=== PATIENT | female | born 1970 | race Caucasian/White ===

== ENCOUNTER 2025-03-05 21:11 | Emergency (ER) | payer BC ==
[~2025-03-05] VITALS: Ht 170.2 cm; Wt 82.4 kg
[2025-03-05 21:32] LABS: UA COLLECTION TYPE CLN CATCH MIDSTREAM
[2025-03-05 21:33] LABS: LEUKOCYTE ESTERASE ,URINE SMALL (Neg); NITRITES, URINE NEGATIVE (Neg); OCCULT BLOOD,URINE TRACE-INTACT (Neg)
[2025-03-05 21:37] LABS: MEAN PLATELET VOLUME 7.5 FL (7.4-10.4); RED CELL DISTRIBUTION WIDTH 13.3 % (11.5-14.5)
[2025-03-05 21:37] LABS: URINE HCG NEGATIVE (NEG)
[2025-03-05 21:38] LABS: MUCUS STRANDS MODERATE /LPF (Neg)
[2025-03-05 21:39] LABS: SQUAMOUS EPITHELIAL CELL,UR MODERATE /LPF (FEW)
[2025-03-05 21:55] LABS: CREATININE 0.94 MG/DL (0.40-0.90); TOTAL CARBON DIOXIDE 24.0 MMOL/L (24-32); eCRCL 68 ML/MIN; eGFR 63 ML/MIN
[2025-03-06 01:00] VITALS: BP 161/95; PULSE 80; RESP 18; TEMP 98.5; O2SAT 98
--- NOTE | 2025-03-06 01:23 | Physician Documentation ---
History of Present Illness ~ Chief Complaint: Abdominal Pain Stated Complaint: GALLBLADDER COMPLICATIONS Time Seen by MD: 01:18 HPI Patient presents to the emergency room for evaluation of right-sided abdominal pain. She has a HIDA scan ordered for the morning. She has had nothing for her pain. She reports that she has had CT scans and ultrasounds and labs however no cause for her pain could be found and that is why the HIDA scan as scheduled. She reports that she talked to the office of her doctor who told her to come into the emergency room to be evaluated. Medication Reconciliation Allergies: Coded Allergies: codeine (Unverified Adverse Reaction, Unknown, hallucinations, 03/05/25) hydromorphone (Unverified Adverse Reaction, Unknown, vomiting, 03/05/25) morphine (Unverified Adverse Reaction, Unknown, vomiting, 03/05/25) Review of Systems ROS All review of systems negative except as per HPI Physical Exam Vital Signs: Temperature: 98.5, Source: Oral, Heart Rate: 80, Respiratory Rate: 18, BP: 161/95, Pulse Oximetry: 98, Weight: 82.400 Oxygen Flow Rate: 0 Physical Exam General: Patient is awake, alert, oriented x4 in no acute distress and well appearing.~ Head: Normocephalic and atraumatic. Eyes: Conjunctival normal. EOMI. PERRL. ENT: Mucous membranes moist. Neck: Supple, trachea is midline. Chest: Clear to auscultation bilaterally without rales, rhonchi, or wheezes. There is no accessory muscle use or retractions. Cardiac: RRR without murmurs, gallops, or rubs. Abd: Soft, nondistended, mild tenderness to right upper quadrant without peritonitis Progress Results/Orders Results/Orders Orders - BLAZE MACARIO MD Cult Urine + [address] (03/05/25 21:39) Completed Orders - BLAZE MACARIO MD Hcg, Ur Ql (03/05/25 21:18) Cbc/Diff (03/05/25 21:18) BMP (03/05/25 21:18) Lipase (03/05/25 21:18) CMP (03/05/25 21:18) Ua W/Microscopic, Cult If Ind (03/05/25 21:19) Vital Signs 03/05/25 03/06/25 21:15 01:00 Temp 98.5 98.5 Pulse 84 80 Resp 16 18 B/P (MAP) 156/100 161/95 (117) Pulse Ox 98 98 O2 Flow Rate 0 0 Laboratory Tests Test 03/05/25 21:19 03/05/25 21:31 Urine Specimen Description Cln catch midstream Urine Color Yellow Urine Clarity Clear Urine pH 6.0 Urine Specific [place] 1.025 Urine Protein Negative Urine Glucose (UA) Negative Urine Ketones Negative Urine Occult Blood Trace-intact Urine Nitrite Negative Urine Bilirubin Negative Urine Urobilinogen 0.2 Urine Leukocyte Esterase Small H Urine RBC 0-2 Urine WBC 5-10 H Urine Squamous Epithelial Cells Moderate Urine Bacteria 1+ Urine Mucus Moderate Urine Culture Indicated Indicated Volume Urine Centrifuged 6 ml Urine HCG, Qualitative Negative Urine Comment Low volume White Blood Count 6.4 Red Blood Count 4.99 Hemoglobin 14.8 Hematocrit 43.5 Mean Corpuscular Volume 87.2 Mean Corpuscular Hemoglobin 29.7 Mean Corpuscular Hemoglobin Concent 34.0 Red Cell Distribution Width 13.3 Platelet Count 278 Mean Platelet Volume 7.5 Neutrophils (%) (Auto) 56.1 Lymphocytes (%) (Auto) 30.2 Monocytes (%) (Auto) 10.7 Eosinophils (%) (Auto) 2.2 Basophils (%) (Auto) 0.8 Neutrophils # (Auto) 3.6 Lymphocytes # (Auto) 1.9 Monocytes # (Auto) 0.7 Eosinophils # (Auto) 0.1 Basophils # (Auto) 0.1 CBC Comment Sodium Level 137 Potassium Level 3.6 Chloride Level 104 Carbon Dioxide Level 24.0 Anion Gap 9 Blood Urea Nitrogen 14 Creatinine 0.94 H Estimated GFR/1.73 m2 63 BUN/Creatinine Ratio 14.9 Glucose Level 146 H Calcium Level 8.9 Total Bilirubin 0.5 Aspartate Amino Transf (AST/SGOT) 27 Alanine Aminotransferase (ALT/SGPT) 67 Alkaline Phosphatase 106 Total Protein 7.7 Albumin 4.0 Globulin 3.7 Albumin/Globulin Ratio 1.1 Lipase 80 H Chemistry Comments Microbiology Date/Time Source Procedure Growth Status 03/05/25 21:39 Urine Clean Catch Midstream Urine Culture - Preliminary Culture received. Resulted Medical Decision Making Findings Patient presented to the emergency room with abdominal pain as per HPI. Differentials include but are not limited to cholecystitis, biliary dyskinesia, intra-abdominal infection, musculoskeletal pain therefore emergent labs ordered which were reassuring. Patient is requesting to go home as she has a scan in the morning we would likely not be able to perform the skin any faster during admission then she went to get it done on outpatient basis. She is comfortable with this plan. Recommended ibuprofen and Tylenol for discomfort. ER precautions discussed Departure Disposition: 01 HOME / SELF CARE / HOMELESS Impression: Primary Impression: Abdominal pain Condition: Stable Discharge Instructions: Abdominal Pain (Nonspecific) Additional Instructions: Follow up with your scheduled HIDA scan in the morning Referrals: NO PRIMARY CARE PROVIDER (PCP) Signature Scribe Signature: No scribe Attestation: The note accurately reflects work and decisions made by me.Blaze Macario MD 03/06/25 01:22 BLAZE MACARIO MD Mar 06, 2025 01:23
== END 2025-03-06 01:28 | disposition home or self-care (01) ==
LOC: ER 21:12
DX: R10.9 Unspecified abdominal pain (principal); Z88.5 Allergy status to narcotic agent
CPT/HCPCS: 36415; 80053; 81001; 81025; 83690; 85025; 87088; 99283